=== PATIENT | female | born 1940 | race Caucasian/White ===

== ENCOUNTER → 2022-01-07 | Outpatient (CLI) | payer MEDICARE ==
[~2022-01-07] MED LIST: ATENOLOL50 MG PO; MELOXICAM15 MG PO; OMEPRAZOLE40 MG PO; ULTRAM50 MG PO
== END ==
LOC: US 09:43
PROVIDERS: ATTEND Internal Medicine Nephrology
DX: N18.32 Chronic kidney disease, stage 3b (principal)
CPT/HCPCS: 76770; 76857